=== PATIENT | male | born 1950 | race Hispanic/Latino ===

== ENCOUNTER → 2023-01-23 | Outpatient (CLI) | payer OTHER ==
[2023-01-23 13:00] LABS: CREATININE 0.9 mg/dL (0.5-1.5)
== END | disposition home or self-care (01) ==
LOC: LAB 08:22
PROVIDERS: ATTEND Internal Medicine Cardiovascular Disease
DX: I10 Essential (primary) hypertension (principal); Z95.0 Presence of cardiac pacemaker
CPT/HCPCS: 36415; 80048

== ENCOUNTER → 2023-08-14 | Outpatient (CLI) | payer OTHER ==
[2023-08-14 12:41] LABS: ALBUMIN 3.9 g/dL (3.5-5.0); BILIRUBIN,DIRECT 0.1 mg/dL (0.0-0.3); BILIRUBIN,TOTAL 0.5 mg/dL (0.2-1.0); TOTAL PROTEIN, SERUM 7.2 g/dL (6.0-8.3)
== END | disposition home or self-care (01) ==
LOC: LAB 09:06
PROVIDERS: ATTEND Internal Medicine Cardiovascular Disease
DX: R51.9 Headache, unspecified (principal); E78.00 Pure hypercholesterolemia, unspecified
CPT/HCPCS: 36415; 80061; 80076

== ENCOUNTER 2024-07-30 05:47 | Day surgery (SDC) | payer OTHER ==
--- NOTE | 2024-07-26 10:57 | EKG ---
[facility] Test Date: 2024-07-26 Test Time: 11:39:18 Pat Name: SHLOMO CARRERO Department: [facility] Room: Gender: M [employer] Operator: [id number] : 1950 Requested By: OSKAR HWANG Order Number: [id number] Reading MD: Izzy Ruth Measurements Intervals [place] Rate: 60 P: 39 W[place]: 208 QRS: -60 QRSD: 165 T: 100 QT: 480 QTc: 480 Interpretive Statements Atrial-sensed ventricular-paced rhythm Compared to ECG 12/22/2022 10:03:20 Left-axis deviation no longer present Electronically Signed On 07-26-2024 18:08:30 FILE KEEPER by Izzy Ruth Please click the below link to view image of tracing.
[2024-07-26 11:16] VITALS: BP 171/87; PULSE 60; RESP 19; TEMP 97.5
[2024-07-26 11:25] LABS: BASOPHILS # (AUTO) 0.04 K/uL (0.00-0.20); BASOPHILS % (AUTO) 0.7 % (0.0-5.0); EOSINOPHILS # (AUTO) 0.15 K/uL (0.00-0.70); EOSINOPHILS % (AUTO) 2.6 % (0.0-8.0); HEMATOCRIT 44.1 % (42-54); IMMATURE GRANULOCYTE ABSOLUTE 0.02 K/uL (0-1); LYMPHOCYTES # (AUTO) 1.4 K/uL (1.0-4.8); LYMPHOCYTES % (AUTO) 24.1 % (21.0-51.0); MEAN CORPUSCULAR HEMOGLOBIN 29.6 pg (27.0-33.0); MEAN CORPUSCULAR HGB CONC 32.7 g/dL (32.0-36.0); MEAN CORPUSCULAR VOLUME 90.6 fL (79-99); MONOCYTES # (AUTO) 0.6 K/uL (0.1-1.0); MONOCYTES % (AUTO) 9.7 % (3.0-13.0); NEUTROPHILS # (AUTO) 3.7 K/uL (1.8-7.7); NEUTROPHILS % (AUTO) 62.6 % (40.0-77.0); PLATELET COUNT (AUTO) 177 K/uL (130-400); RED BLOOD CELL COUNT(AUTO) 4.87 MIL/uL (4.50-6.20); WHITE BLOOD COUNT (AUTO) 5.9 K/uL (4.8-10.8)
[2024-07-26 11:30] LABS: APPEARANCE,URINE CLEAR (CLEAR); BILIRUBIN,URINE NEGATIVE (NEGATIVE); COLOR,URINE LIGHT-YELLOW (YELLOW); GLUCOSE, URINE (UA) NEGATIVE (NEGATIVE); KETONES,URINE NEGATIVE (NEGATIVE); LEUKOCYTE ESTERASE ,URINE NEGATIVE Leu/uL (NEGATIVE); NITRATE,URINE NEGATIVE (NEGATIVE); OCCULT BLOOD,URINE NEGATIVE (NEGATIVE); PH,URINE 5.5 (5.0-8.0); PROTEIN,URINE NEGATIVE (NEGATIVE); UROBILINOGEN,URINE 0.2 mg/dL (0.2-1.0)
[2024-07-26 11:35] LABS: CREATININE 0.9 mg/dL (0.5-1.3)
[2024-07-26 11:38] LABS: INR <= 0.93 (0.85-1.15); PROTHROMBIN TIME 10.4 SEC (9.6-11.6)
[2024-07-26 11:39] LABS: PARTIAL THROMBOPLASTIN TIME 27.4 SEC (26.3-35.5)
[2024-07-26 11:48] LABS: ADD UA MICROSCOPIC NO
[2024-07-26 11:59] LABS: B-TYPE NATRIURETIC PEPTIDE 26 pg/mL (0-100)
--- NOTE | 2024-07-26 12:31 | HMCIMG ---
Exam Type: CHEST 1VW Clinical Information: PREOP Comparison: None Findings: The lungs are clear of infiltrates. The heart is enlarged in size. The bony and soft tissue structures of the chest are unremarkable. Left cardiac pacemaker is noted with leads in place. Impression: Clear lungs.
[2024-07-30] VITALS (14 sets, daily range): BP systolic 108–146; BP diastolic 65–75; PULSE 60–63; RESP 14; TEMP 97.3–97.4
[~2024-07-30] VITALS: Ht 167.6 cm; Wt 89.2 kg
[~2024-07-30 05:47] MED LIST: ATOR20TA65 PO
[2024-07-30] MEDS: 0.9%NACL 1000ML 1,000 ML IV SCH (06:46)
[2024-07-30] MEDS ORDERED: HEParin 10,000 UNIT/10ML (1,000 UNIT/ML) VIAL ONE (07:16)
[2024-07-30] MEDS ORDERED: IOHEXOL 350 MG/ML 100ML INFUS..BTL IV ONE (07:16)
[2024-07-30] MEDS ORDERED: IOHEXOL-350 50ML VIAL IV ONE (07:16)
[2024-07-30] MEDS ORDERED: HEParin-NS 1,000 UNIT/500 ML 1,000 ML IV ONE (07:16)
[2024-07-30] MEDS ORDERED: niCARDIpine 25MG INJ IV ONE (07:16)
[2024-07-30] MEDS ORDERED: SODIUM BICARB 50MEQ 50ML VIAL 50 ML ONE (07:16)
[2024-07-30] MEDS ORDERED: NITROGLYCERIN 50MG VIAL ONE (07:17)
[2024-07-30] MEDS ORDERED: MIDAZOLAM HCL 1 MG/ML 2ML VIAL ONE (07:33)
[2024-07-30] MEDS ORDERED: FENTanyl CITRate PF 50 MCG/1 ML 2ML VIAL ONE (07:33)
--- NOTE | 2024-07-30 08:36 | PRN ---
Diagnostic Coronary Angiogram From Radial Approach Indication: Angina with abnormal stress test Technique: The patient was brought to the gold leaf laborer in a fasting state and sterile preparation was made in usual fashion. The patient had been explained risks and benefits of the procedure and accepted prior to this procedure. Patient was sedated with 1 mg Versed and 50 mcg fentanyl. Under local anesthesia with 1% lidocaine the right radial artery was entered percutaneously and a 5/6 Ethiop[place] Terumo radial sheath was advanced into the vessel. A cocktail of 5000 units aqueous heparin, 200 mcg Cardene and 200 mcg nitroglycerin was administered via radial arterial injection. A 6 Ethiop[place] TIGG catheter was advanced to the aortic root over a guidewire and the right coronary was cannulated for selective coronary arteriograms, then the left coronary was cannulated for selective left coronary arteriograms. The TIGG was removed over a guidewire and 200 mcg Cardene and 200 mcg nitroglycerin were administered via the sheath. An exchange was made for a 6 Ethiopian pigtail using a guidewire and the left ventricle was cannulated. Left ventricular cineangiography was performed in REILLY projection and then a pullback recording was obtained. The catheter was removed over a guidewire. At the conclusion of the procedure arterial hemostasis was obtained by use of a Terumo radial band with excellent hemostasis and no complications.. The patient was transferred from the gold leaf laborer in stable condition. Results: A. Hemodynamics: LVEDP was eight before and after angiography and LV systolic pressure was 110 with aortic root pressure 122/59, mean 84. B. Ventriculography: Lot of ectopy occurred during ventriculography but it appeared the ejection fraction was about 55% and there were no wall motion abnormalities identified. The mitral valve is competent. C. Coronary arteriography: This is a right-dominant system. The right coronary supplies the posterior descending and two posterolateral and is somewhat ectatic was slow fill and slow washout. Left main is large caliber and free of disease. Left anterior descending supplies three diagonals and reaches the apex and it is ectatic proximally and exhibits slow fill and slow washout. Left circumflex supplies a ramus, a small obtuse marginal, a large obtuse marginal, and three posterolateral branches. The vessel is free of disease but somewhat ectatic and exhibits slow fill and slow washout. Conclusions: Catheterization is most consistent with microvascular ischemia, no fixed obstructive coronary disease identified. Recommendation: Trial of verapamil OSKAR HWANG MD Jul 30, 2024 08:36
[2024-07-30] MEDS ORDERED: 0.9% NACL 500ML IV.SOLN 500 ML IV SCH (09:00)
== END 2024-07-30 12:05 | disposition home or self-care (01) ==
LOC: DAH 05:47
PROVIDERS: ATTEND Internal Medicine Cardiovascular Disease
DX: R07.89 Other chest pain (principal); R94.39 Abnormal result of other cardiovascular function study; I25.118 Atherosclerotic heart disease of native coronary artery with other forms of angina pectoris; I10 Essential (primary) hypertension; E78.5 Hyperlipidemia, unspecified; Z98.890 Other specified postprocedural states; Z82.49 Family history of ischemic heart disease and other diseases of the circulatory system; Z79.01 Long term (current) use of anticoagulants; Z79.899 Other long term (current) drug therapy
CPT/HCPCS: 80048; 83880; 85025; 85610; 85730; 81003; 36415; 71045; 93005; 93458; C1769; C1894; J3010; J3490 ×3; J1644 ×2; J2250; Q9967 ×2; A4215; A4222; A4221; A4663; A4216; A4606; Q9965; A4223 ×3; 96360; 96361; 99156; 99157